=== PATIENT | male | born 1985 | race Caucasian/White ===

== ENCOUNTER 2017-10-08 16:24 | Inpatient (IN) | payer OTHER ==
[2017-10-08] VITALS (11 sets, daily range): BP systolic 70–122; BP diastolic 35–57
[~2017-10-08] VITALS: Ht 177.8 cm; Wt 98.9 kg
[~2017-10-08 16:24] MED LIST: ADDERALL XR 3030 MG PO; ADDERALL20 MG PO; HYDROXYZINE PAM50 MG PO; LEXAPRO20 MG PO; PRAVACHOL10 MG PO; THORAZINE50 MG PO; TRAZODONE HCL100 MG PO
[2017-10-08 16:39] LABS: HEMATOCRIT 40.8 % (38.0-50.0); HEMOGLOBIN 13.5 G/DL (12.5-16.6); MCH 31.3 PG (29.0-34.0); MCHC 33.1 G/DL (30.0-36.0); MCV 94.7 FL (86-99); NRBC (%) 0.1 /100 WBC (0-0); PLATELET COUNT 234 K/uL (156-360); RBC DIS.WIDTH-CV 13.3 % (11.8-14.6); RBC DIS.WIDTH-SD 46.4 % (39-53); RED BLOOD COUNT 4.31 M/uL (4.00-5.50); WHITE BLOOD COUNT 23.5 K/uL (4.1-10.2)
[2017-10-08 16:58] LABS: AMYLASE 74 IU/L (1-118); CHLORIDE 107 mEq/L (99-109); POTASSIUM 3.6 mEq/L (3.7-5.4); SODIUM 137 mEq/L (136-147)
[2017-10-08 17:00] LABS: GLUCOSE 225 mg/dL (70-99)
[2017-10-08 17:03] LABS: SERUM ETHYL ALCOHOL 186 mg/dL
[2017-10-08 17:04] LABS: CREATININE 1.4 mg/dL (0.6-1.3); GFR ESTIMATE (CALCULATED) > 59 mL/min/ (58.99-99999)
[2017-10-08 17:05] LABS: UREA NITROGEN (BUN) 13 mg/dL (9-23)
[2017-10-08 17:07] LABS: LIPASE 118 U/L (1.0-51.0)
[2017-10-08 17:20] LABS: ABS NEUTROPHIL COUNT 14.9; ATYPICAL LYMPHOCYTE 6.1 %; BAND NEUTROPHILS 0.9 % (0-8.0); BASOPHILS 1.7 %; EOSINOPHIL ABS CT 0; LYMPHOCYTES 23.5 % (15.0-45.0); MONOCYTES 1.7 % (0-9.0); MYELOCYTES 3.5 %; SEG.NEUTROPHILS 62.6 % (46.0-76.0); SMUDGE CELLS 4.3
[2017-10-08 17:22] LABS: APPEARANCE CLOUDY ((CLEAR)); BILIRUBIN NEGATIVE; BLOOD SMALL; COLOR YELLOW ((YELLOW)); GLUCOSE (STRIP) 50; KETONES NEGATIVE; LEUKOCYTES NEGATIVE; NITRITE NEGATIVE; PROTEIN (STRIP) 100; SPECIFIC GRAVITY 1.003 (1.000-1.030); UROBILINOGEN 0.2 MG/DL (0.2-1.0)
[2017-10-08 17:30] LABS: BACTERIA RARE /HPF; CALCIUM OXALATE CRYSTALS 1+ /HPF; EPITHELIAL CELLS RARE /HPF; MUCUS TRACE /LPF; RED BLOOD CELLS 0-5 /HPF (0-5); UCUL ADDED? YES
[2017-10-08 17:31] LABS: AMPHETAMINE NEGATIVE (500 ng/mL); BARBITURATES NEGATIVE (200 ng/mL); BENZODIAZEPINES NEGATIVE (150 ng/mL); BUPRENORPHINE NEGATIVE (10 ng/mL); COCAINE NEGATIVE (150 ng/mL); METHADONE NEGATIVE (200 ng/mL); METHAMPHETAMINE NEGATIVE (500 ng/mL); OPIATES (MORPHINE) NEGATIVE (100 ng/mL); OXYCODONE NEGATIVE (100 ng/mL); PHENCYCLIDINE NEGATIVE (25 ng/mL); PROPOXYPHENE NEGATIVE (300 ng/mL); THC CANNABINOIDS PRESUMPTIVE POSITIVE (50 ng/mL); TRICYCLIC ANTIDEPRESSANTS NEGATIVE (300 ng/mL)
[2017-10-08 20:25] LABS: BASE EXCESS -15.8 mEq/L (-3 to +3); BICARBONATE 12.7 mEq/L (22-26); CARBOXY HGB 1.2 % (0-5); METHEMOGLOBIN 1.1 % (0-1.5); PCO2 39 mm Hg (35-45); PO2 333 mm Hg (80-100)
[2017-10-08 20:26] LABS: DEVICE VENT; FI02 100 %; MODE AC; SITE ALINE; pH 7.12 (7.35-7.45)
[2017-10-08 20:27] LABS: PEEP 5 CM/H20; TIDAL VOLUME 500 ML
[2017-10-08 21:33] LABS: BASE EXCESS -15.5 mEq/L (-3 to +3); BICARBONATE 11.6 mEq/L (22-26); METHEMOGLOBIN 1.7 % (0-1.5); PCO2 31 mm Hg (35-45); PO2 173 mm Hg (80-100); pH 7.18 (7.35-7.45)
[2017-10-08 21:34] LABS: DEVICE VENT; FI02 50 %; MODE AC; SITE ALINE
[2017-10-08 21:35] LABS: PEEP 5 CM/H20; TIDAL VOLUME 500 ML
[2017-10-08 21:36] LABS: MECHANICAL RATE 25 resp/min; TOTAL RESP RATE 25 resp/min
[2017-10-09] VITALS (9 sets, daily range): BP systolic 81–205; BP diastolic 38–116
[2017-10-09 00:49] LABS: CHLORIDE 114 mEq/L (99-109); POTASSIUM 3.6 mEq/L (3.7-5.4); SODIUM 142 mEq/L (136-147)
[2017-10-09 00:51] LABS: GLUCOSE 139 mg/dL (70-99)
[2017-10-09 00:54] LABS: CREATININE 1.4 mg/dL (0.6-1.3); GFR ESTIMATE (CALCULATED) > 59 mL/min/ (58.99-99999)
[2017-10-09 00:55] LABS: UREA NITROGEN (BUN) 16 mg/dL (9-23)
[2017-10-09 01:21] LABS: INTER. NORMALIZED RATIO 1.3
[2017-10-09 01:25] LABS: BASE EXCESS -12.5 mEq/L (-3 to +3); BICARBONATE 13.7 mEq/L (22-26); CARBOXY HGB 1.5 % (0-5); METHEMOGLOBIN 1.6 % (0-1.5); PCO2 32 mm Hg (35-45); PO2 121 mm Hg (80-100)
[2017-10-09 01:26] LABS: DEVICE VENT; FI02 40 %; MECHANICAL RATE 25 resp/min; MODE ACVC; PEEP 5 CM/H20; SITE ALINE; TIDAL VOLUME 500 ML; TOTAL RESP RATE 25 resp/min; pH 7.24 (7.35-7.45)
[2017-10-09 05:54] LABS: INTER. NORMALIZED RATIO 1.2
[2017-10-09 06:18] LABS: BASOPHIL (%) 0.2 % (0-1); EOSINOPHIL (%) 0 % (0-5); HEMATOCRIT 35.5 % (38.0-50.0); HEMOGLOBIN 12.5 G/DL (12.5-16.6); LYMPHOCYTE (%) 4.1 % (15-42); LYMPHOCYTE COUNT 1.1 K/uL (1.0-2.8); MCH 32.3 PG (29.0-34.0); MCHC 35.2 G/DL (30.0-36.0); MCV 91.7 FL (86-99); MONOCYTE (%) 4.8 % (3-12); MONOCYTE COUNT 1.2 K/uL (0-0.8); NEUTROPHIL (%) 89.9 % (45-76); RBC DIS.WIDTH-CV 13.7 % (11.8-14.6); RBC DIS.WIDTH-SD 46.1 % (39-53); RED BLOOD COUNT 3.87 M/uL (4.00-5.50); WHITE BLOOD COUNT 25.6 K/uL (4.1-10.2)
[2017-10-09 06:39] LABS: PLAT.SUFFICIENCY DECREASED
[2017-10-09 06:45] LABS: PLATELET COUNT 143 K/uL (156-360)
[2017-10-09 06:47] LABS: ALBUMIN 3.3 G/DL (3.2-4.8); ALKALINE PHOSPHATASE 60 IU/L (3-129); ALT (GPT) 50 IU/L (3-49); AST (GOT) 86 IU/L (2-34); CHLORIDE 115 MEQ/L (99-109); CREATININE 1.1 MG/DL (0.6-1.3); GFR ESTIMATE (CALCULATED) > 59 mL/min/ (58.99-99999); SODIUM 143 MEQ/L (136-147); TOTAL BILIRUBIN 0.4 MG/DL (0.0-1.0); TOTAL PROTEIN 5.2 G/DL (6.4-8.3); UREA NITROGEN (BUN) 17 mg/dL (9-23)
[2017-10-09 06:52] LABS: GLUCOSE 100 mg/dL (70-99); POTASSIUM 4.5 MEQ/L (3.7-5.4)
[2017-10-09 08:05] LABS: BASE EXCESS -9.1 mEq/L (-3 to +3); BICARBONATE 16.1 mEq/L (22-26); COMMENTS - BLOOD GASES C+; METHEMOGLOBIN 1.2 % (0-1.5); PCO2 32 mm Hg (35-45); PO2 217 mm Hg (80-100); SITE ALINE; pH 7.31 (7.35-7.45)
[2017-10-09 08:06] LABS: DEVICE VENT; FI02 50 %; MECHANICAL RATE 12 resp/min; MODE A/C; PEEP 5 CM/H20; TIDAL VOLUME 750 ML; TOTAL RESP RATE 12 resp/min
[2017-10-09 08:54] LABS: BASE EXCESS -9.8 mEq/L (-3 to +3); BICARBONATE 21.1 mEq/L (22-26); CARBOXY HGB 1.3 % (0-5); COMMENTS - BLOOD GASES C+; METHEMOGLOBIN 1.1 % (0-1.5); PCO2 71 mm Hg (35-45); PO2 133 mm Hg (80-100); SITE ALINE; pH 7.08 (7.35-7.45)
[2017-10-09 08:55] LABS: DEVICE 840; FI02 50 %; MECHANICAL RATE 2 resp/min; MODE IMV; PEEP 5 CM/H20; TIDAL VOLUME 750 ML; TOTAL RESP RATE 2 resp/min
[2017-10-09 11:43] LABS: BASE EXCESS -8.5 mEq/L (-3 to +3); BICARBONATE 21.3 mEq/L (22-26); CARBOXY HGB 1.8 % (0-5); METHEMOGLOBIN 1.2 % (0-1.5)
[2017-10-09 11:44] LABS: COMMENTS - BLOOD GASES +C; DEVICE PB840; FI02 50 %; MECHANICAL RATE 6 resp/min; MODE SIMV; PCO2 64 mm Hg (35-45); PO2 184 mm Hg (80-100); PRES. SUPPORT 0 CM/H2O; SITE A-LINE; TIDAL VOLUME 750 ML; TOTAL RESP RATE 6 resp/min
[2017-10-09 11:45] LABS: PEEP 5 CM/H20; pH 7.13 (7.35-7.45)
[2017-10-09 13:20] LABS: BASOPHIL (%) 0.2 % (0-1); EOSINOPHIL (%) 0.2 % (0-5); EOSINOPHIL COUNT 0.1 K/uL (0-0.3); HEMATOCRIT 34.2 % (38.0-50.0); HEMOGLOBIN 11.2 G/DL (12.5-16.6); IMMATURE GRANULOCYTE (%) 0.9 % (0.0-0.7); LYMPHOCYTE (%) 9.1 % (15-42); MCH 30.9 PG (29.0-34.0); MCHC 32.7 G/DL (30.0-36.0); MCV 94.2 FL (86-99); MONOCYTE (%) 7.3 % (3-12); MONOCYTE COUNT 1.6 K/uL (0-0.8); NEUTROPHIL (%) 82.3 % (45-76); NEUTROPHIL COUNT 17.8 K/uL (1.8-6.4); PLATELET COUNT 160 K/uL (156-360); RBC DIS.WIDTH-CV 13.8 % (11.8-14.6); RED BLOOD COUNT 3.63 M/uL (4.00-5.50); WHITE BLOOD COUNT 21.7 K/uL (4.1-10.2)
[2017-10-09 13:41] LABS: TROP-I INTERPRETATION NEGATIVE; TROPONIN-I 0.17 ng/mL (0.0-0.30)
[2017-10-09 13:43] LABS: ALBUMIN 2.8 G/DL (3.2-4.8); ALKALINE PHOSPHATASE 52 IU/L (3-129); ALT (GPT) 39 IU/L (3-49); CHLORIDE 118 MEQ/L (99-109); CREATININE 0.9 MG/DL (0.6-1.3); GFR ESTIMATE (CALCULATED) > 59 mL/min/ (58.99-99999); GLUCOSE 122 mg/dL (70-99); POTASSIUM 5.1 MEQ/L (3.7-5.4); SODIUM 145 MEQ/L (136-147); TOTAL PROTEIN 4.8 G/DL (6.4-8.3); UREA NITROGEN (BUN) 19 mg/dL (9-23)
[2017-10-09 13:44] LABS: INTER. NORMALIZED RATIO 1.2
[2017-10-09 13:45] LABS: AST (GOT) 46 IU/L (2-34); PTT 26.8 SEC (25-37); TOTAL BILIRUBIN 0.3 MG/DL (0.0-1.0)
[2017-10-09 13:51] LABS: ALKALINE PHOSPHATASE 54 IU/L (3-129); ALT (GPT) 38 IU/L (3-49); DIRECT BILIRUBIN 0.1 mg/dL (0.0-0.3); MAGNESIUM 1.7 mg/dl (1.3-2.7); PHOSPHORUS 5.8 mg/dL (2.5-4.9); TOTAL BILIRUBIN 0.3 MG/DL (0.0-1.0)
[2017-10-09 13:52] LABS: AST (GOT) 47 IU/L (2-34)
[2017-10-09 14:07] LABS: BASE EXCESS -6.1 mEq/L (-3 to +3); BICARBONATE 21.4 mEq/L (22-26); CARBOXY HGB 0.5 % (0-5); PO2 174 mm Hg (80-100)
[2017-10-09 14:07] LABS: CREATINE KINASE 413 IU/L (1-294); GAMMA-GT 11 IU/L (4-73); TOTAL CK 413 IU/L (1-294)
[2017-10-09 14:08] LABS: PCO2 51 mm Hg (35-45); SITE ALINE; pH 7.23 (7.35-7.45)
[2017-10-09 14:09] LABS: APPEARANCE CLEAR ((CLEAR)); BILIRUBIN NEGATIVE; BLOOD SMALL; COLOR STRAW ((YELLOW)); GLUCOSE (STRIP) NEGATIVE; KETONES NEGATIVE; LEUKOCYTES NEGATIVE; NITRITE NEGATIVE; PROTEIN (STRIP) NEGATIVE; SPECIFIC GRAVITY 1.013 (1.000-1.030); UROBILINOGEN 0.2 MG/DL (0.2-1.0)
[2017-10-09 14:10] LABS: DEVICE PB 840; FI02 50 %; MECHANICAL RATE 12 resp/min; MODE BILEVEL APRV; PEEP 0 CM/H20; PRESSURE CONTROL VENTILATION 27 CM H20; TOTAL RESP RATE 12 resp/min
[2017-10-09 14:10] LABS: CK-MB 26.1 ng/mL (0.0-4.9); CKMB RELATIVE INDEX 6.3 (0.0-3.9)
[2017-10-09 14:14] LABS: BACTERIA RARE /HPF; EPITHELIAL CELLS NONE SEEN /HPF; MUCUS TRACE /LPF; RED BLOOD CELLS 0-5 /HPF (0-5); UCUL ADDED? NO; WHITE BLOOD CELLS 0-5 /HPF (0-5)
[2017-10-09 18:26] LABS: HEMATOCRIT 28.6 % (38.0-50.0); HEMOGLOBIN 9.4 G/DL (12.5-16.6); MCHC 32.9 G/DL (30.0-36.0); MCV 94.4 FL (86-99); RBC DIS.WIDTH-CV 13.9 % (11.8-14.6); RBC DIS.WIDTH-SD 48.3 % (39-53); RED BLOOD COUNT 3.03 M/uL (4.00-5.50); WHITE BLOOD COUNT 11.9 K/uL (4.1-10.2)
[2017-10-09 18:30] LABS: BASE EXCESS -7.9 mEq/L (-3 to +3); BICARBONATE 19.3 mEq/L (22-26); CARBOXY HGB 0.6 % (0-5)
[2017-10-09 18:32] LABS: DEVICE VENT; PCO2 45 mm Hg (35-45); PO2 209 mm Hg (80-100); SITE ALINE; pH 7.24 (7.35-7.45)
[2017-10-09 18:32] LABS: ALBUMIN 2.4 G/DL (3.2-4.8); CHLORIDE 117 MEQ/L (99-109); DIRECT BILIRUBIN 0.3 mg/dL (0.0-0.3); MAGNESIUM 1.6 mg/dl (1.3-2.7); POTASSIUM 4.6 MEQ/L (3.7-5.4); SODIUM 143 MEQ/L (136-147)
[2017-10-09 18:33] LABS: FI02 50 %; MODE BILEVEL
[2017-10-09 18:37] LABS: ALKALINE PHOSPHATASE 40 IU/L (3-129); ALT (GPT) 30 IU/L (3-49); AST (GOT) 34 IU/L (2-34)
[2017-10-09 18:38] LABS: ALKALINE PHOSPHATASE 41 IU/L (3-129); ALT (GPT) 30 IU/L (3-49); AST (GOT) 32 IU/L (2-34); CREATININE 0.9 MG/DL (0.6-1.3); GFR ESTIMATE (CALCULATED) > 59 mL/min/ (58.99-99999); GLUCOSE 129 mg/dL (70-99); INTER. NORMALIZED RATIO 1.3; UREA NITROGEN (BUN) 19 mg/dL (9-23)
[2017-10-09 18:40] LABS: TROP-I INTERPRETATION NEGATIVE
[2017-10-09 18:45] LABS: PHOSPHORUS 3.4 mg/dL (2.5-4.9); TOTAL BILIRUBIN 0.6 MG/DL (0.0-1.0)
[2017-10-09 18:55] LABS: HEMATOLOGY COMMENT 1 SN; PLAT.SUFFICIENCY DECREASED
[2017-10-09 18:56] LABS: BASOPHIL (%) 0.1 % (0-1); EOSINOPHIL (%) 0.1 % (0-5); IMMATURE GRANULOCYTE (%) 0.8 % (0.0-0.7); LYMPHOCYTE (%) 3.6 % (15-42); LYMPHOCYTE COUNT 0.4 K/uL (1.0-2.8); MONOCYTE (%) 1.9 % (3-12); MONOCYTE COUNT 0.2 K/uL (0-0.8); NEUTROPHIL (%) 93.5 % (45-76); PLATELET COUNT 82 K/uL (156-360)
[2017-10-09 19:00] LABS: CREATINE KINASE 518 IU/L (1-294); GAMMA-GT 11 IU/L (4-73); TOTAL CK 518 IU/L (1-294)
[2017-10-09 19:37] LABS: CK-MB 29.5 ng/mL (0.0-4.9); CKMB RELATIVE INDEX 5.7 (0.0-3.9)
[2017-10-10] VITALS (7 sets, daily range): BP systolic 111–135; BP diastolic 64–72
[2017-10-10 00:06] LABS: BASE EXCESS -3.3 mEq/L (-3 to +3); BICARBONATE 22.7 mEq/L (22-26); CARBOXY HGB 0.6 % (0-5); METHEMOGLOBIN 1.5 % (0-1.5); PCO2 44 mm Hg (35-45); PO2 192 mm Hg (80-100); pH 7.32 (7.35-7.45)
[2017-10-10 00:07] LABS: DEVICE VENT; FI02 50 %; MECHANICAL RATE 12 resp/min; MODE BILEVEL 27/0; SITE A-LINE
[2017-10-10 00:08] LABS: COMMENTS - BLOOD GASES C+; PRES. SUPPORT 0 CM/H2O
[2017-10-10 00:24] LABS: BASOPHIL (%) 0.1 % (0-1); EOSINOPHIL (%) 0 % (0-5); HEMOGLOBIN 9.8 G/DL (12.5-16.6); IMMATURE GRANULOCYTE (%) 1.3 % (0.0-0.7); LYMPHOCYTE (%) 3.4 % (15-42); LYMPHOCYTE COUNT 0.5 K/uL (1.0-2.8); MCH 31.6 PG (29.0-34.0); MCHC 33.8 G/DL (30.0-36.0); MCV 93.5 FL (86-99); MONOCYTE (%) 1.4 % (3-12); MONOCYTE COUNT 0.2 K/uL (0-0.8); NEUTROPHIL (%) 93.8 % (45-76); PLATELET COUNT 97 K/uL (156-360); RBC DIS.WIDTH-SD 47.8 % (39-53); WHITE BLOOD COUNT 15.9 K/uL (4.1-10.2)
[2017-10-10 00:31] LABS: INTER. NORMALIZED RATIO 1.3
[2017-10-10 00:41] LABS: CHLORIDE 111 mEq/L (99-109); POTASSIUM 3.9 mEq/L (3.7-5.4); SODIUM 141 mEq/L (136-147)
[2017-10-10 00:43] LABS: GLUCOSE 165 mg/dL (70-99)
[2017-10-10 00:45] LABS: TOTAL BILIRUBIN 0.5 mg/dL (0.0-1.0)
[2017-10-10 00:46] LABS: ALKALINE PHOSPHATASE 44 IU/L (3-129)
[2017-10-10 00:47] LABS: CREATININE 0.9 mg/dL (0.6-1.3); GFR ESTIMATE (CALCULATED) > 59 mL/min/ (58.99-99999)
[2017-10-10 00:48] LABS: AST (GOT) 46 IU/L (2-34); DIRECT BILIRUBIN 0.3 mg/dL (0.0-0.3); UREA NITROGEN (BUN) 20 mg/dL (9-23)
[2017-10-10 00:49] LABS: ALT (GPT) 38 IU/L (3-49); TOTAL CK 1617 IU/L (1-294)
[2017-10-10 00:49] LABS: TROP-I INTERPRETATION NEGATIVE; TROPONIN-I 0.07 ng/mL (0.0-0.30)
[2017-10-10 00:58] LABS: CKMB RELATIVE INDEX 4.2 (0.0-3.9)
[2017-10-10 01:00] LABS: CK-MB 68.4 ng/mL (0.0-4.9); CREATINE KINASE 1617 IU/L (1-294)
[2017-10-10 01:07] LABS: MAGNESIUM 1.5 mg/dL (1.3-2.7)
[2017-10-10 01:08] LABS: TOTAL PROTEIN 4.4 g/dL (6.4-8.3)
[2017-10-10 01:12] LABS: PHOSPHORUS 4.1 mg/dL (2.5-4.9)
[2017-10-10 01:15] LABS: LIPASE 9 U/L (1.0-51.0)
[2017-10-10 01:16] LABS: AMYLASE 133 IU/L (1-118)
[2017-10-10 02:40] LABS: GAMMA-GT 13 IU/L (4-73)
[2017-10-10 06:01] LABS: BASE EXCESS -1.7 mEq/L (-3 to +3); BICARBONATE 25.4 mEq/L (22-26); CARBOXY HGB 0.7 % (0-5); METHEMOGLOBIN 1.3 % (0-1.5)
[2017-10-10 06:02] LABS: PCO2 54 mm Hg (35-45)
[2017-10-10 06:03] LABS: COMMENTS - BLOOD GASES C+; DEVICE VENT; FI02 40 %; MECHANICAL RATE 10 resp/min; MODE BILEVEL 29/0; PO2 162 mm Hg (80-100); PRES. SUPPORT 0 CM/H2O; SITE A-LINE; TOTAL RESP RATE 10 resp/min
[2017-10-10 06:04] LABS: pH 7.28 (7.35-7.45)
[2017-10-10 06:15] LABS: BASOPHIL (%) 0.1 % (0-1); EOSINOPHIL (%) 0 % (0-5); HEMOGLOBIN 9.4 G/DL (12.5-16.6); LYMPHOCYTE (%) 3.2 % (15-42); LYMPHOCYTE COUNT 0.6 K/uL (1.0-2.8); MCH 31.6 PG (29.0-34.0); MCHC 33.6 G/DL (30.0-36.0); MCV 94.3 FL (86-99); MONOCYTE (%) 2.1 % (3-12); MONOCYTE COUNT 0.4 K/uL (0-0.8); NEUTROPHIL (%) 93.6 % (45-76); NEUTROPHIL COUNT 17.2 K/uL (1.8-6.4); PLATELET COUNT 96 K/uL (156-360); RBC DIS.WIDTH-CV 14.1 % (11.8-14.6); RED BLOOD COUNT 2.97 M/uL (4.00-5.50); WHITE BLOOD COUNT 18.3 K/uL (4.1-10.2)
[2017-10-10 06:28] LABS: INTER. NORMALIZED RATIO 1.3
[2017-10-10 07:00] LABS: TROP-I INTERPRETATION NEGATIVE; TROPONIN-I 0.07 ng/mL (0.0-0.30)
[2017-10-10 07:24] LABS: ALBUMIN 3.4 G/DL (3.2-4.8); ALKALINE PHOSPHATASE 41 IU/L (3-129); ALT (GPT) 30 IU/L (3-49); AMYLASE 113 IU/L (1-118); AST (GOT) 41 IU/L (2-34); CHLORIDE 107 MEQ/L (99-109); GFR ESTIMATE (CALCULATED) > 59 mL/min/ (58.99-99999); GLUCOSE 168 mg/dL (70-99); LIPASE 9 U/L (1.0-51.0); MAGNESIUM 1.7 mg/dl (1.3-2.7); POTASSIUM 3.8 MEQ/L (3.7-5.4); SODIUM 141 MEQ/L (136-147); TOTAL BILIRUBIN 0.5 MG/DL (0.0-1.0); UREA NITROGEN (BUN) 21 mg/dL (9-23)
[2017-10-10 07:29] LABS: CREATINE KINASE 1406 IU/L (1-294); PHOSPHORUS 4.6 mg/dL (2.5-4.9); TOTAL PROTEIN 4.9 G/DL (6.4-8.3)
[2017-10-10 07:33] LABS: ALKALINE PHOSPHATASE 41 IU/L (3-129); ALT (GPT) 30 IU/L (3-49); AST (GOT) 41 IU/L (2-34); CREATINE KINASE 1406 IU/L (1-294); TOTAL BILIRUBIN 0.5 MG/DL (0.0-1.0); TOTAL CK 1406 IU/L (1-294)
[2017-10-10 07:54] LABS: DIRECT BILIRUBIN 0.2 mg/dL (0.0-0.3); GAMMA-GT 12 IU/L (4-73)
[2017-10-10 08:20] LABS: CK-MB 85.5 ng/mL (0.0-4.9); CKMB RELATIVE INDEX 6.1 (0.0-3.9)
[2017-10-10 09:13] LABS: Estimated Average Glucose 111 mg/dL (70-123); HEMOGLOBIN A1c (GLYCOHEMOGLOB) 5.5 % HGB (Below 5.7)
[2017-10-10 10:58] LABS: APPEARANCE CLEAR ((CLEAR)); BILIRUBIN NEGATIVE; BLOOD MODERATE; COLOR COLORLESS ((YELLOW)); GLUCOSE (STRIP) NEGATIVE; KETONES NEGATIVE; LEUKOCYTES NEGATIVE; NITRITE NEGATIVE; PROTEIN (STRIP) NEGATIVE; SPECIFIC GRAVITY 1.006 (1.000-1.030); UROBILINOGEN 0.2 MG/DL (0.2-1.0)
[2017-10-10 11:12] LABS: BACTERIA NONE SEEN /HPF; EPITHELIAL CELLS NONE SEEN /HPF; MUCUS NONE SEEN /LPF; RED BLOOD CELLS 0-5 /HPF (0-5); WHITE BLOOD CELLS 0-5 /HPF (0-5)
[2017-10-10 12:14] LABS: BASOPHIL (%) 0.1 % (0-1); EOSINOPHIL (%) 0 % (0-5); HEMATOCRIT 28.3 % (38.0-50.0); HEMOGLOBIN 9.3 G/DL (12.5-16.6); LYMPHOCYTE (%) 2.8 % (15-42); LYMPHOCYTE COUNT 0.7 K/uL (1.0-2.8); MCH 30.8 PG (29.0-34.0); MCHC 32.9 G/DL (30.0-36.0); MCV 93.7 FL (86-99); MONOCYTE (%) 3.5 % (3-12); MONOCYTE COUNT 0.8 K/uL (0-0.8); NEUTROPHIL (%) 92.6 % (45-76); NEUTROPHIL COUNT 21.2 K/uL (1.8-6.4); PLATELET COUNT 106 K/uL (156-360); RBC DIS.WIDTH-CV 14.1 % (11.8-14.6); RBC DIS.WIDTH-SD 48.7 % (39-53); RED BLOOD COUNT 3.02 M/uL (4.00-5.50); WHITE BLOOD COUNT 22.9 K/uL (4.1-10.2)
[2017-10-10 12:20] LABS: INTER. NORMALIZED RATIO 1.2
[2017-10-10 12:23] LABS: PTT 29.7 SEC (25-37)
[2017-10-10 12:37] LABS: TROP-I INTERPRETATION NEGATIVE; TROPONIN-I 0.05 ng/mL (0.0-0.30)
[2017-10-10 12:51] LABS: BASE EXCESS 0.9 mEq/L (-3 to +3); BICARBONATE 27.7 mEq/L (22-26); CARBOXY HGB 0.5 % (0-5); METHEMOGLOBIN 1.6 % (0-1.5); PCO2 55 mm Hg (35-45); pH 7.31 (7.35-7.45)
[2017-10-10 12:52] LABS: DEVICE VENT; FI02 100 %; INSPIRATION TIME 0.55 seconds; MECHANICAL RATE 10 resp/min; MODE BILEVEL; PO2 477 mm Hg (80-100); SITE A LINE; TOTAL RESP RATE 10 resp/min
[2017-10-10 12:53] LABS: COMMENTS - BLOOD GASES HIGH PEEP 29; PEEP 0 CM/H20
[2017-10-10 13:04] LABS: ALKALINE PHOSPHATASE 38 IU/L (3-129); ALT (GPT) 32 IU/L (3-49); AST (GOT) 40 IU/L (2-34); CK-MB 70.7 ng/mL (0.0-4.9); CKMB RELATIVE INDEX 5.2 (0.0-3.9); DIRECT BILIRUBIN 0.1 mg/dL (0.0-0.3); GAMMA-GT 12 IU/L (4-73); TOTAL BILIRUBIN 0.4 MG/DL (0.0-1.0); TOTAL CK 1365 IU/L (1-294)
[2017-10-10 13:07] LABS: CREATINE KINASE 1365 IU/L (1-294)
[2017-10-10 13:40] LABS: BICARBONATE 29.2 mEq/L (22-26); METHEMOGLOBIN 1.3 % (0-1.5); PCO2 58 mm Hg (35-45); PO2 488 mm Hg (80-100); pH 7.31 (7.35-7.45)
[2017-10-10 13:41] LABS: COMMENTS - BLOOD GASES C+ANA; SITE ALINE
[2017-10-10 13:42] LABS: DEVICE 840 PB; FI02 100 %; MECHANICAL RATE 12 resp/min; MODE AC PC; PRESSURE CONTROL VENTILATION 10 CM H20; TOTAL RESP RATE 12 resp/min
[2017-10-10 13:43] LABS: PEEP 5 CM/H20
[2017-10-10 13:46] LABS: ALBUMIN 3.7 G/DL (3.2-4.8); CHLORIDE 106 MEQ/L (99-109); CREATININE 1.1 MG/DL (0.6-1.3); GFR ESTIMATE (CALCULATED) > 59 mL/min/ (58.99-99999); GLUCOSE 174 mg/dL (70-99); MAGNESIUM 2.3 mg/dl (1.3-2.7); PHOSPHORUS 3.8 mg/dL (2.5-4.9); POTASSIUM 3.8 MEQ/L (3.7-5.4); SODIUM 143 MEQ/L (136-147); TOTAL PROTEIN 5.6 G/DL (6.4-8.3); UREA NITROGEN (BUN) 20 mg/dL (9-23)
[2017-10-10 15:08] LABS: AMYLASE 124 IU/L (1-118)
[2017-10-10 15:22] LABS: LIPASE 12 U/L (1.0-51.0)
[2017-10-10 18:16] LABS: BASOPHIL (%) 0.1 % (0-1); EOSINOPHIL (%) 0 % (0-5); HEMATOCRIT 27.4 % (38.0-50.0); HEMOGLOBIN 9.2 G/DL (12.5-16.6); IMMATURE GRANULOCYTE (%) 1.1 % (0.0-0.7); LYMPHOCYTE (%) 2.3 % (15-42); LYMPHOCYTE COUNT 0.6 K/uL (1.0-2.8); MCH 31.6 PG (29.0-34.0); MCHC 33.6 G/DL (30.0-36.0); MCV 94.2 FL (86-99); MONOCYTE (%) 3.3 % (3-12); MONOCYTE COUNT 0.8 K/uL (0-0.8); NEUTROPHIL (%) 93.2 % (45-76); NEUTROPHIL COUNT 22.2 K/uL (1.8-6.4); PLATELET COUNT 101 K/uL (156-360); RBC DIS.WIDTH-CV 14.2 % (11.8-14.6); RBC DIS.WIDTH-SD 48.9 % (39-53); RED BLOOD COUNT 2.91 M/uL (4.00-5.50); WHITE BLOOD COUNT 23.8 K/uL (4.1-10.2)
[2017-10-10 18:21] LABS: INTER. NORMALIZED RATIO 1.2
[2017-10-10 18:24] LABS: PTT 29.3 SEC (25-37)
[2017-10-10 18:35] LABS: ALBUMIN 3.6 G/DL (3.2-4.8); AMYLASE 133 IU/L (1-118); CHLORIDE 106 MEQ/L (99-109); DIRECT BILIRUBIN 0.1 mg/dL (0.0-0.3); MAGNESIUM 2.4 mg/dl (1.3-2.7); POTASSIUM 3.8 MEQ/L (3.7-5.4); SODIUM 141 MEQ/L (136-147); TOTAL BILIRUBIN 0.4 MG/DL (0.0-1.0)
[2017-10-10 18:42] LABS: ALKALINE PHOSPHATASE 38 IU/L (3-129); ALT (GPT) 29 IU/L (3-49); AST (GOT) 37 IU/L (2-34); GFR ESTIMATE (CALCULATED) > 59 mL/min/ (58.99-99999); GLUCOSE 193 mg/dL (70-99); LIPASE 16 U/L (1.0-51.0); PHOSPHORUS 2.5 mg/dL (2.5-4.9); TOTAL PROTEIN 5.5 G/DL (6.4-8.3); UREA NITROGEN (BUN) 24 mg/dL (9-23)
[2017-10-10 18:43] LABS: TROP-I INTERPRETATION NEGATIVE; TROPONIN-I 0.04 ng/mL (0.0-0.30)
[2017-10-10 18:58] LABS: CREATINE KINASE 1335 IU/L (1-294); GAMMA-GT 12 IU/L (4-73); TOTAL CK 1335 IU/L (1-294)
[2017-10-10 20:08] LABS: CK-MB 67.1 ng/mL (0.0-4.9)
[2017-10-10 23:44] LABS: INTER. NORMALIZED RATIO 1.2
[2017-10-10 23:47] LABS: PTT 29.1 SEC (25-37)
[2017-10-10 23:50] LABS: TOTAL BILIRUBIN 0.4 mg/dL (0.0-1.0)
[2017-10-10 23:54] LABS: DIRECT BILIRUBIN 0.2 mg/dL (0.0-0.3)
[2017-10-11] VITALS: BP 121/70
[2017-10-11 00:22] LABS: BASOPHIL (%) 0.1 % (0-1); EOSINOPHIL (%) 0 % (0-5); HEMATOCRIT 27.2 % (38.0-50.0); HEMOGLOBIN 9.1 G/DL (12.5-16.6); IMMATURE GRANULOCYTE (%) 1.2 % (0.0-0.7); LYMPHOCYTE (%) 1.9 % (15-42); LYMPHOCYTE COUNT 0.5 K/uL (1.0-2.8); MCH 31.2 PG (29.0-34.0); MCHC 33.5 G/DL (30.0-36.0); MCV 93.2 FL (86-99); NEUTROPHIL (%) 92.8 % (45-76); NEUTROPHIL COUNT 23.1 K/uL (1.8-6.4); PLATELET COUNT 99 K/uL (156-360); RBC DIS.WIDTH-SD 47.4 % (39-53); RED BLOOD COUNT 2.92 M/uL (4.00-5.50); WHITE BLOOD COUNT 24.9 K/uL (4.1-10.2)
[2017-10-11 00:35] LABS: INTER. NORMALIZED RATIO 1.2
[2017-10-11 00:37] LABS: PTT 28.5 SEC (25-37)
[2017-10-11 00:38] LABS: ALBUMIN 3.8 g/dL (3.2-4.8); CHLORIDE 107 mEq/L (99-109); POTASSIUM 3.9 mEq/L (3.7-5.4); SODIUM 143 mEq/L (136-147)
[2017-10-11 00:40] LABS: GLUCOSE 160 mg/dL (70-99)
[2017-10-11 00:42] LABS: TOTAL BILIRUBIN 0.4 mg/dL (0.0-1.0)
[2017-10-11 00:44] LABS: ALKALINE PHOSPHATASE 40 IU/L (3-129); CREATININE 0.9 mg/dL (0.6-1.3); GFR ESTIMATE (CALCULATED) > 59 mL/min/ (58.99-99999)
[2017-10-11 00:45] LABS: UREA NITROGEN (BUN) 23 mg/dL (9-23)
[2017-10-11 00:46] LABS: AST (GOT) 45 IU/L (2-34)
[2017-10-11 00:47] LABS: ALT (GPT) 34 IU/L (3-49)
[2017-10-11 00:48] LABS: LIPASE 26 U/L (1.0-51.0); TOTAL CK 1547 IU/L (1-294); TROP-I INTERPRETATION NEGATIVE; TROPONIN-I 0.04 ng/mL (0.0-0.30)
[2017-10-11 00:52] LABS: BASE EXCESS 5.8 mEq/L (-3 to +3); BICARBONATE 31.1 mEq/L (22-26); CARBOXY HGB 0.7 % (0-5); METHEMOGLOBIN 1.6 % (0-1.5)
[2017-10-11 00:53] LABS: COMMENTS - BLOOD GASES C+; DEVICE VENT; FI02 40 %; MECHANICAL RATE 12 resp/min; MODE ACPC; PCO2 48 mm Hg (35-45); PEEP 5 CM/H20; PO2 125 mm Hg (80-100); PRESSURE CONTROL VENTILATION 13 CM H20; SITE A-LINE; TOTAL RESP RATE 12 resp/min; pH 7.42 (7.35-7.45)
[2017-10-11 00:54] LABS: CK-MB 53.6 ng/mL (0.0-4.9); CKMB RELATIVE INDEX 3.5 (0.0-3.9)
[2017-10-11 00:58] LABS: AMYLASE 196 IU/L (1-118); CREATINE KINASE 1547 IU/L (1-294)
[2017-10-11 01:00] LABS: CREATINE KINASE 1548 IU/L (1-294); MAGNESIUM 2.4 mg/dL (1.3-2.7); PHOSPHORUS 2.6 mg/dL (2.5-4.9)
[2017-10-11 02:25] LABS: APPEARANCE CLOUDY ((CLEAR)); BILIRUBIN NEGATIVE; BLOOD LARGE; COLOR YELLOW ((YELLOW)); GLUCOSE (STRIP) NEGATIVE; KETONES NEGATIVE; LEUKOCYTES NEGATIVE; NITRITE NEGATIVE; PROTEIN (STRIP) 30; SPECIFIC GRAVITY 1.023 (1.000-1.030); UROBILINOGEN 0.2 MG/DL (0.2-1.0)
[2017-10-11 02:29] LABS: BACTERIA RARE /HPF; CALCIUM OXALATE CRYSTALS 4+ /HPF; EPITHELIAL CELLS RARE /HPF; MUCUS TRACE /LPF; RED BLOOD CELLS TNTC /HPF (0-5)
[2017-10-11 05:05] LABS: BASE EXCESS 5.7 mEq/L (-3 to +3); BICARBONATE 31.1 mEq/L (22-26); CARBOXY HGB 0.8 % (0-5); COMMENTS - BLOOD GASES C+; DEVICE VENT; FI02 100 %; MECHANICAL RATE 12 resp/min; METHEMOGLOBIN 1.6 % (0-1.5); MODE ACPC; PCO2 49 mm Hg (35-45); PEEP 5 CM/H20; PO2 465 mm Hg (80-100); PRESSURE CONTROL VENTILATION 13 CM H20; SITE A-LINE; TOTAL RESP RATE 12 resp/min; pH 7.41 (7.35-7.45)
[2017-10-11 05:46] LABS: BASOPHIL (%) 0.1 % (0-1); EOSINOPHIL (%) 0 % (0-5); HEMATOCRIT 26.5 % (38.0-50.0); HEMOGLOBIN 8.7 G/DL (12.5-16.6); LYMPHOCYTE (%) 2.2 % (15-42); LYMPHOCYTE COUNT 0.6 K/uL (1.0-2.8); MCH 30.7 PG (29.0-34.0); MCHC 32.8 G/DL (30.0-36.0); MCV 93.6 FL (86-99); NEUTROPHIL (%) 91.7 % (45-76); NEUTROPHIL COUNT 23.8 K/uL (1.8-6.4); PLATELET COUNT 102 K/uL (156-360); RBC DIS.WIDTH-CV 13.9 % (11.8-14.6); RBC DIS.WIDTH-SD 47.8 % (39-53); RED BLOOD COUNT 2.83 M/uL (4.00-5.50)
[2017-10-11 06:02] LABS: INTER. NORMALIZED RATIO 1.2
[2017-10-11 06:05] LABS: PTT 27.8 SEC (25-37)
[2017-10-11 06:06] LABS: TROP-I INTERPRETATION NEGATIVE; TROPONIN-I 0.03 ng/mL (0.0-0.30)
[2017-10-11 06:58] LABS: ALKALINE PHOSPHATASE 35 IU/L (3-129); ALT (GPT) 28 IU/L (3-49); AST (GOT) 37 IU/L (2-34); CHLORIDE 105 MEQ/L (99-109); CREATININE 0.9 MG/DL (0.6-1.3); GFR ESTIMATE (CALCULATED) > 59 mL/min/ (58.99-99999); GLUCOSE 163 mg/dL (70-99); MAGNESIUM 2.3 mg/dl (1.3-2.7); PHOSPHORUS 1.9 mg/dL (2.5-4.9); POTASSIUM 3.7 MEQ/L (3.7-5.4); SODIUM 143 MEQ/L (136-147); TOTAL PROTEIN 6.2 G/DL (6.4-8.3); UREA NITROGEN (BUN) 24 mg/dL (9-23)
[2017-10-11 06:59] LABS: CREATINE KINASE 1175 IU/L (1-294); TOTAL BILIRUBIN 0.6 MG/DL (0.0-1.0)
[2017-10-11 07:49] LABS: AMYLASE 137 IU/L (1-118); DIRECT BILIRUBIN 0.2 mg/dL (0.0-0.3); LIPASE 23 U/L (1.0-51.0)
[2017-10-11 07:56] LABS: TOTAL CK 1175 IU/L (1-294)
[2017-10-11 07:57] LABS: CK-MB 42.3 ng/mL (0.0-4.9); CKMB RELATIVE INDEX 3.6 (0.0-3.9)
[2017-10-11 08:45] LABS: BASE EXCESS 2.4 mEq/L (-3 to +3); BICARBONATE 27.2 mEq/L (22-26); pH 7.42 (7.35-7.45)
[2017-10-11 08:46] LABS: COMMENTS - BLOOD GASES IN OR; PCO2 42 mm Hg (35-45); PO2 261 mm Hg (80-100); SITE ALINE
[2017-10-11 09:41] LABS: BASE EXCESS 8.1 mEq/L (-3 to +3); CARBOXY HGB 1.6 % (0-5); METHEMOGLOBIN 1.4 % (0-1.5); PCO2 41 mm Hg (35-45); PO2 307 mm Hg (80-100)
[2017-10-11 09:42] LABS: COMMENTS - BLOOD GASES PATIENT IN OR.; SITE ALINE
== END 2017-10-11 14:13 | DRG 82 ==
LOC: TRA 16:24 → 4WEST 17:33 → EDOF 17:33 → ENRESERV 17:38 → 4WEST 18:45
PROVIDERS: Emergency Medicine; Internal Medicine Critical Care Medicine
DX: S02.0XXB Fracture of vault of skull, initial encounter for open fracture; S01.84XA Puncture wound with foreign body of other part of head, initial encounter; G93.6 Cerebral edema; R40.2430 Glasgow coma scale score 3-8, unspecified time; I46.9 Cardiac arrest, cause unspecified; F32.9 Major depressive disorder, single episode, unspecified; F41.9 Anxiety disorder, unspecified; E78.5 Hyperlipidemia, unspecified; F17.200 Nicotine dependence, unspecified, uncomplicated; Z66 Do not resuscitate; Z88.0 Allergy status to penicillin; Z00.5 Encounter for examination of potential donor of organ and tissue
CPT/HCPCS: 36600; 70450; 71010; 71045; 72125; 80048; 80053; 81003; 82150; 82247; 82248; 82330; 82550; 82550 91; 82553; 82803; 82948; 82977; 83036; 83605; 83690; 83735; 83930; 83935; 84075; 84100; 84450; 84460; 84484; 84999; 85025; 85025 91; 85027; 85610; 85730; 86850; 86900; 86901; 86920; 87040; 87070; 87077; 87086; 87147; 87186; 87205; 87641; 93005; 93306; 94002; 94003; 94799; 99281; 99285; C1751; C1769; C1887; C1894; G0480; J0171; J0610; J1815; J1940; J2543; J2930; J3475; J3480; J7030; J7040; J7050; P9045; P9047; S0028